=== PATIENT | male | born 1980 | race Caucasian/White ===

== ENCOUNTER 2020-08-20 12:51 | Inpatient (IN) | payer OTHER ==
[2020-08-20 15:03] VITALS: BMI 28.4
[2020-08-20] MEDS ORDERED: IBUPROFEN 400 MG TABLET (FP) PO PRN (16:07)
[2020-08-20] MEDS ORDERED: MAGNESIUM CITRATE 300 ML BOTTLE PO PRN (16:07)
[2020-08-20] MEDS ORDERED: BISMUTH SUBSALICYLATE 524 MG/30 ML UD PO PRN (16:07)
[2020-08-20] MEDS ORDERED: MENTHOL/PHENOL 1 EACH UD MM PRN (16:07)
[2020-08-20] MEDS ORDERED: NALOXONE HCL 0.4 MG/ML VIAL IM PRN (16:07)
[2020-08-20] MEDS ORDERED: MAGNESIUM HYDROX 2400MG/30ML ORAL SUSPENSION 30 ML CUP PO PRN (16:07)
[2020-08-20] MEDS ORDERED: chlordiazePOXIDE HCL 25 MG CAPSULE PO PRN (16:07)
[2020-08-20] MEDS ORDERED: MAG HYDROX/AL HYDROX/SIMETH 30 ML UNIT-DOSE CUP PO PRN (16:07)
[2020-08-20] MEDS ORDERED: ACETAMINOPHEN 325 MG TABLET (FP) PO PRN ×2 (16:07)
[2020-08-20] MEDS ORDERED: NICOTINE POLACRILEX 2 MG GUM BUC PRN (16:07)
[2020-08-20] MEDS ORDERED: cloNIDine HCL 0.1 MG TABLET PO PRN (16:07)
[2020-08-20] MEDS ORDERED: METHOCARBAMOL 500 MG TABLET PO PRN (16:07)
[2020-08-20] MEDS ORDERED: METHADONE HCL 10 MG TABLET (FOR DETOX USE ONLY) PO ONE (16:07)
[2020-08-20] MEDS: chlordiazePOXIDE HCL 25 MG CAPSULE PO SCH ×2 (17:28→22:39)
[2020-08-20] MEDS: THIAMINE HCL 100 MG TABLET (FP) PO SCH (22:39)
[2020-08-20] MEDS: MELATONIN 5 MG TABLETS PO SCH (22:39)
[2020-08-21] MEDS: chlordiazePOXIDE HCL 25 MG CAPSULE PO SCH ×4 (05:09→22:29)
[2020-08-21] MEDS ORDERED: PRENATAL VITAMINS W/ FOLIC ACID TABLET (FP) PO SCH (10:00)
[2020-08-21] MEDS ORDERED: METHADONE (DETOX) 20 MG, METHADONE (DETOX) 5 MG PO ONE (10:00)
[2020-08-21] MEDS ORDERED: NICOTINE 14 MG/24 HOURS TOPICAL PATCH TD SCH (10:00)
[2020-08-21] MEDS ORDERED: METHADONE HCL 10 MG TABLET (FOR DETOX USE ONLY) ONE (11:16)
[2020-08-21] MEDS ORDERED: METHADONE HCL 5 MG TABLET (FOR DETOX USE ONLY) ONE (11:16)
[2020-08-21 11:22] LABS: HEMATOCRIT 43.5 % (35.4-49); HEMOGLOBIN 14.6 GM/dL (11.7-16.9); MCH 30.5 pg (25.7-33.7); MCHC 33.5 g/dl (32.0-35.9); MEAN CELL VOLUME 90.9 fl (80-96); MEAN PLT VOLUME 8.4 fl (7.5-11.1); PLATELET COUNT 254 K/MM3 (134-434); RBC 4.78 M/mm3 (4.00-5.60); RDW 13.3 % (11.9-15.9)
[2020-08-21 11:33] LABS: POTASSIUM 4.4 mmol/L (3.5-5.1)
[2020-08-21 11:37] LABS: ALBUMIN 3.3 g/dl (3.4-5.0); BLOOD UREA NITROGEN 11.3 mg/dL (7-18)
[2020-08-21 11:38] LABS: CALCIUM 8.8 mg/dL (8.5-10.1)
[2020-08-21 11:40] LABS: CREATININE 0.8 mg/dL (0.55-1.3)
[2020-08-21 11:42] LABS: BILIRUBIN,TOTAL 0.3 mg/dL (0.2-1); TOT PROT 6.3 g/dl (6.4-8.2)
[2020-08-21] MEDS: THIAMINE HCL 100 MG TABLET (FP) PO SCH (22:28)
[2020-08-21] MEDS: MELATONIN 5 MG TABLETS PO SCH (22:30)
[2020-08-22] MEDS ORDERED: chlordiazePOXIDE HCL 25 MG CAPSULE PO SCH (05:00)
[2020-08-22 06:38] VITALS: BP 141/86; PULSE 61; TEMP 97.5
[2020-08-22] MEDS ORDERED: METHADONE HCL 10 MG TABLET (FOR DETOX USE ONLY) PO ONE (10:00)
[2020-08-23] MEDS ORDERED: chlordiazePOXIDE HCL 10 MG CAPSULE PO PRN
[2020-08-23] MEDS ORDERED: chlordiazePOXIDE HCL 10 MG CAPSULE PO SCH (05:00)
[2020-08-23] MEDS ORDERED: METHADONE (DETOX) 10 MG, METHADONE (DETOX) 5 MG PO ONE (10:00)
[2020-08-24] MEDS ORDERED: chlordiazePOXIDE HCL 10 MG CAPSULE PO SCH (05:00)
[2020-08-24] MEDS ORDERED: METHADONE HCL 10 MG TABLET (FOR DETOX USE ONLY) PO ONE (10:00)
[2020-08-25] MEDS ORDERED: chlordiazePOXIDE HCL 10 MG CAPSULE PO ONE (05:00)
[2020-08-25] MEDS ORDERED: METHADONE HCL 5 MG TABLET (FOR DETOX USE ONLY) PO ONE (06:00)
== END 2020-08-22 08:45 | disposition left against medical advice (07) | DRG 770 ==
LOC: YASAS 12:51 → Y6N 16:06
PROVIDERS: ADMIT Allergy & Immunology; ATTEND Allergy & Immunology
PROC: HZ2ZZZZ Detoxification Services for Substance Abuse Treatment (ICD-10-PCS; principal; 2020-08-20)
DX: F11.23 Opioid dependence with withdrawal (principal); F10.230 Alcohol dependence with withdrawal, uncomplicated; F14.10 Cocaine abuse, uncomplicated; F17.210 Nicotine dependence, cigarettes, uncomplicated
CPT/HCPCS: 36415; 80053; 85027; 86780; 93005; 93010; C9803; U0003

== ENCOUNTER 2022-04-14 13:51 | Inpatient (IN) | payer OTHER ==
[2022-04-14 14:52] VITALS: BMI 22.0
[2022-04-14] MEDS ORDERED: NALOXONE HCL 0.4 MG/ML VIAL IM PRN (15:16)
[2022-04-14] MEDS ORDERED: METHOCARBAMOL 500 MG TABLET PO PRN (15:16)
[2022-04-14] MEDS ORDERED: cloNIDine HCL 0.1 MG TABLET PO PRN (15:16)
[2022-04-14] MEDS ORDERED: methaDONE HCL 10 MG TABLET (FOR DETOX USE ONLY) PO ONE (15:16)
[2022-04-14] MEDS ORDERED: LOPERAMIDE HCL 2 MG CAPSULE PO PRN (15:16)
[2022-04-14] MEDS ORDERED: BISMUTH SUBSALICYLATE 524 MG/30 ML PO PRN (15:16)
[2022-04-14] MEDS ORDERED: DICYCLOMINE HCL 10 MG CAPSULE PO PRN (15:16)
[2022-04-14] MEDS ORDERED: IBUPROFEN 600 MG TABLET (FP) PO PRN (15:16)
[2022-04-14] MEDS ORDERED: ACETAMINOPHEN 325 MG TABLET (FP) PO PRN ×2 (15:16)
[2022-04-14] MEDS ORDERED: NICOTINE 10 MG CARTRIDGE (INHALER) IH PRN (15:16)
[2022-04-14] MEDS ORDERED: IBUPROFEN 400 MG TABLET (FP) PO PRN (15:16)
[2022-04-14] MEDS ORDERED: LORazepam 1 MG TABLET PO PRN (15:16)
[2022-04-14] MEDS ORDERED: MAGNESIUM HYDROX 2400MG/30ML ORAL SUSPENSION 30 ML CUP PO PRN (15:16)
[2022-04-14] MEDS ORDERED: BENZOCAINE/MENTHOL (CHLORASEPTIC ) LOZENGE MM PRN (15:16)
[2022-04-14] MEDS ORDERED: MAG HYDROX/AL HYDROX/SIMETH 30 ML UNIT-DOSE CUP PO PRN (15:16)
[2022-04-14] MEDS ORDERED: MAGNESIUM CITRATE 300 ML BOTTLE PO PRN (15:16)
[2022-04-14] MEDS: LORazepam 2 MG TABLET PO SCH ×2 (18:07→22:46)
[2022-04-14] MEDS: MELATONIN 5 MG TABLETS PO SCH (22:48)
[2022-04-14] MEDS: THIAMINE HCL 100 MG TABLET (FP) PO SCH (22:48)
[2022-04-14] MEDS: CEPHALEXIN MONOHYDRATE 500 MG CAPSULE (UD) PO SCH (22:48)
[2022-04-15] MEDS: LORazepam 2 MG TABLET PO SCH ×4 (06:36→23:08)
[2022-04-15] MEDS ORDERED: methaDONE HCL 10 MG TABLET (FOR DETOX USE ONLY) ONE (08:59)
[2022-04-15] MEDS ORDERED: PRENATAL VITAMINS W/ FOLIC ACID TABLET (FP) PO SCH (10:00)
[2022-04-15] MEDS ORDERED: NICOTINE 7 MG/24 HOURS TOPICAL PATCH TD SCH (10:00)
[2022-04-15 11:55] LABS: HEMATOCRIT 35.5 % (35.4-49); HEMOGLOBIN 12.2 GM/dL (11.7-16.9); MCH 28.6 pg (25.7-33.7); MCHC 34.3 g/dl (32.0-35.9); MEAN CELL VOLUME 83.4 fl (80-96); PLATELET COUNT 273 10^3/uL (134-434); RBC 4.25 M/mm3 (4.00-5.60); RDW 13.3 % (11.9-15.9); WHITE BLOOD COUNT 6.7 K/mm3 (4.0-10.0)
[2022-04-15 12:25] LABS: CALCIUM 8.7 mg/dL (8.5-10.1)
[2022-04-15 12:27] LABS: ALBUMIN 2.8 g/dl (3.4-5.0); BLOOD UREA NITROGEN 12.8 mg/dL (7-18)
[2022-04-15 12:29] LABS: CREATININE 0.6 mg/dL (0.55-1.3)
[2022-04-15 12:31] LABS: BILIRUBIN,TOTAL 1.2 mg/dL (0.2-1); TOT PROT 6.1 g/dl (6.4-8.2)
[2022-04-15 12:35] LABS: HIV INTERPRETATION NEGATIVE (NEGATIVE)
[2022-04-15] MEDS: CEPHALEXIN MONOHYDRATE 500 MG CAPSULE (UD) PO SCH ×2 (15:34→23:08)
[2022-04-15] MEDS: MELATONIN 5 MG TABLETS PO SCH (23:08)
[2022-04-15] MEDS: THIAMINE HCL 100 MG TABLET (FP) PO SCH (23:08)
[2022-04-16] MEDS ORDERED: LORazepam 1 MG TABLET PO SCH (05:00)
[2022-04-16 07:17] VITALS: BP 150/99; PULSE 90; TEMP 97.8
[2022-04-16] MEDS ORDERED: methaDONE HCL 10 MG TABLET (FOR DETOX USE ONLY) PO ONE (10:00)
[2022-04-17] MEDS ORDERED: LORazepam 0.5 MG TABLET PO PRN
[2022-04-17] MEDS ORDERED: LORazepam 0.5 MG TABLET PO SCH (05:00)
[2022-04-18] MEDS ORDERED: LORazepam 0.5 MG TABLET PO ONE (05:00)
[2022-04-18] MEDS ORDERED: methaDONE HCL 10 MG TABLET (FOR DETOX USE ONLY) PO ONE (10:00)
== END 2022-04-16 08:33 | disposition left against medical advice (07) | DRG 770 ==
LOC: YASAS 13:51 → Y3N 17:11
PROVIDERS: ADMIT Allergy & Immunology; ATTEND Surgery
PROC: HZ2ZZZZ Detoxification Services for Substance Abuse Treatment (ICD-10-PCS; principal; 2022-04-14)
DX: F11.23 Opioid dependence with withdrawal (principal); F10.230 Alcohol dependence with withdrawal, uncomplicated; F14.20 Cocaine dependence, uncomplicated; F17.210 Nicotine dependence, cigarettes, uncomplicated; U07.1 COVID-19; I80.8 Phlebitis and thrombophlebitis of other sites
CPT/HCPCS: 36415; 80053; 82947; 83036; 85027; 86780; 87389; 87811; 93005; 93010; C9803-CS; U0003; U0005

== ENCOUNTER 2022-08-20 16:31 | Inpatient (IN) | payer OTHER ==
[2022-08-20 17:38] VITALS: BMI 20.5
[2022-08-20] MEDS ORDERED: ONDANSETRON *ODT* 4 MG TABLET SL PRN (19:10)
[2022-08-20] MEDS ORDERED: IBUPROFEN 600 MG TABLET (FP) PO PRN (19:10)
[2022-08-20] MEDS ORDERED: POLYETHYLENE GLYCOL (HEALTHYLAX) 3350 17 GM PACKET PO PRN (19:10)
[2022-08-20] MEDS ORDERED: NICOTINE 10 MG CARTRIDGE (INHALER) IH PRN (19:10)
[2022-08-20] MEDS ORDERED: IBUPROFEN 400 MG TABLET (FP) PO PRN (19:10)
[2022-08-20] MEDS ORDERED: NALOXONE HCL (KLOXXADO) 8 MG SPRAY NS PRN (19:10)
[2022-08-20] MEDS ORDERED: LOPERAMIDE HCL 2 MG CAPSULE PO PRN (19:10)
[2022-08-20] MEDS ORDERED: ACETAMINOPHEN 325 MG TABLET (FP) PO PRN ×2 (19:10)
[2022-08-20] MEDS ORDERED: BENZOCAINE/MENTHOL (CHLORASEPTIC ) LOZENGE MM PRN (19:10)
[2022-08-20] MEDS ORDERED: MAG HYDROX/AL HYDROX/SIMETH 30 ML UNIT-DOSE CUP PO PRN (19:10)
[2022-08-20] MEDS ORDERED: BISMUTH SUBSALICYLATE 524 MG/30 ML PO PRN (19:10)
[2022-08-20] MEDS ORDERED: MAGNESIUM HYDROX 2400MG/30ML ORAL SUSPENSION 30 ML CUP PO PRN (19:10)
[2022-08-20] MEDS ORDERED: DICYCLOMINE HCL 10 MG CAPSULE PO PRN (19:10)
[2022-08-20] MEDS: THIAMINE HCL 100 MG TABLET (FP) PO SCH ×2 (22:21→22:24)
[2022-08-20] MEDS: MELATONIN 5 MG TABLETS PO SCH ×2 (22:21→22:24)
[2022-08-21] MEDS: PRENATAL VITAMINS W/ FOLIC ACID TABLET (FP) PO SCH (10:14)
[2022-08-21] MEDS: METHOCARBAMOL 500 MG TABLET PO PRN (10:14)
[2022-08-21] MEDS: hydrOXYzine PAMOATE 25 MG CAPSULE (FP) PO PRN (10:14)
[2022-08-21] MEDS ORDERED: methaDONE HCL 10 MG TABLET (FOR DETOX USE ONLY) PO ONE (10:15)
[2022-08-21 11:16] LABS: HEMATOCRIT 40.4 % (35.4-49); HEMOGLOBIN 13.4 GM/dL (11.7-16.9); MCH 27.8 pg (25.7-33.7); MCHC 33.2 g/dl (32.0-35.9); MEAN CELL VOLUME 83.8 fl (80-96); MEAN PLT VOLUME 7.2 fl (7.5-11.1); PLATELET COUNT 250 10^3/uL (134-434); RBC 4.83 M/mm3 (4.00-5.60); RDW 14.3 % (11.9-15.9); WHITE BLOOD COUNT 10.4 K/mm3 (4.0-10.0)
[2022-08-21 11:38] LABS: ALBUMIN 3.1 g/dl (3.4-5.0); BLOOD UREA NITROGEN 17.2 mg/dL (7-18); CREATININE 0.6 mg/dL (0.55-1.3)
[2022-08-21 11:40] LABS: BILIRUBIN,TOTAL 0.3 mg/dL (0.2-1); TOT PROT 6.5 g/dl (6.4-8.2)
[2022-08-21 11:41] LABS: CALCIUM 8.9 mg/dL (8.5-10.1)
[2022-08-21] MEDS: cloNIDine HCL 0.1 MG TABLET PO PRN ×2 (13:31→17:22)
[2022-08-21] MEDS: diazePAM 5 MG TABLET PO PRN ×2 (13:31→22:27)
[2022-08-21] MEDS: THIAMINE HCL 100 MG TABLET (FP) PO SCH (22:26)
[2022-08-21] MEDS: MELATONIN 5 MG TABLETS PO SCH (22:26)
[2022-08-22] MEDS: PRENATAL VITAMINS W/ FOLIC ACID TABLET (FP) PO SCH (10:22)
[2022-08-22] MEDS: METHOCARBAMOL 500 MG TABLET PO PRN (10:22)
[2022-08-22] MEDS: cloNIDine HCL 0.1 MG TABLET PO PRN (12:59)
[2022-08-22] MEDS: THIAMINE HCL 100 MG TABLET (FP) PO SCH (22:16)
[2022-08-22] MEDS: MELATONIN 5 MG TABLETS PO SCH (22:16)
[2022-08-23] MEDS ORDERED: methaDONE HCL 10 MG TABLET (FOR DETOX USE ONLY) PO ONE (10:00)
[2022-08-23 10:05] VITALS: BP 164/107; PULSE 88; RESP 16; TEMP 97.1
[2022-08-23] MEDS: PRENATAL VITAMINS W/ FOLIC ACID TABLET (FP) PO SCH (10:13)
[2022-08-23] MEDS: hydrOXYzine PAMOATE 25 MG CAPSULE (FP) PO PRN (10:14)
[2022-08-23] MEDS: METHOCARBAMOL 500 MG TABLET PO PRN (10:14)
[2022-08-25] MEDS ORDERED: methaDONE HCL 10 MG TABLET (FOR DETOX USE ONLY) PO ONE (10:00)
== END 2022-08-23 11:50 | disposition left against medical advice (07) | DRG 770 ==
LOC: YASAS 16:31 → UNDOADMIN 19:14 → Y6N 19:14
PROVIDERS: ADMIT Allergy & Immunology; ATTEND Surgery
PROC: HZ2ZZZZ Detoxification Services for Substance Abuse Treatment (ICD-10-PCS; principal; 2022-08-20)
DX: F11.23 Opioid dependence with withdrawal (principal); F10.230 Alcohol dependence with withdrawal, uncomplicated; F14.20 Cocaine dependence, uncomplicated; F17.213 Nicotine dependence, cigarettes, with withdrawal; R63.4 Abnormal weight loss; Z68.20 Body mass index [BMI] 20.0-20.9, adult; Z86.16 Personal history of COVID-19; Z28.310 Unvaccinated for COVID-19; Z28.9 Immunization not carried out for unspecified reason; Z59.00 Homelessness unspecified
CPT/HCPCS: 36415; 80053; 85027; 86780; C9803-CS; U0003; U0005

== ENCOUNTER 2022-11-10 12:41 | Inpatient (IN) | payer OTHER ==
[2022-11-10 13:29] VITALS: BMI 18.3
[2022-11-10] MEDS ORDERED: ONDANSETRON *ODT* 4 MG TABLET SL PRN (14:50)
[2022-11-10] MEDS ORDERED: BISMUTH SUBSALICYLATE 524 MG/30 ML PO PRN (14:50)
[2022-11-10] MEDS ORDERED: MAG HYDROX/AL HYDROX/SIMETH 30 ML UNIT-DOSE CUP PO PRN (14:50)
[2022-11-10] MEDS ORDERED: NICOTINE POLACRILEX 2 MG GUM BUC PRN (14:50)
[2022-11-10] MEDS ORDERED: MAGNESIUM HYDROX 2400MG/30ML ORAL SUSPENSION 30 ML CUP PO PRN (14:50)
[2022-11-10] MEDS ORDERED: IBUPROFEN 600 MG TABLET (FP) PO PRN (14:50)
[2022-11-10] MEDS ORDERED: LOPERAMIDE HCL 2 MG CAPSULE PO PRN (14:50)
[2022-11-10] MEDS ORDERED: POLYETHYLENE GLYCOL (HEALTHYLAX) 3350 17 GM PACKET PO PRN (14:50)
[2022-11-10] MEDS ORDERED: DICYCLOMINE HCL 10 MG CAPSULE PO PRN (14:50)
[2022-11-10] MEDS ORDERED: NALOXONE HCL (KLOXXADO) 8 MG SPRAY NS PRN (14:50)
[2022-11-10] MEDS ORDERED: IBUPROFEN 400 MG TABLET (FP) PO PRN (14:50)
[2022-11-10] MEDS ORDERED: NICOTINE 10 MG CARTRIDGE (INHALER) IH PRN (14:50)
[2022-11-10] MEDS ORDERED: ACETAMINOPHEN 325 MG TABLET (FP) PO PRN ×2 (14:50)
[2022-11-10] MEDS ORDERED: BENZOCAINE/MENTHOL (CHLORASEPTIC ) LOZENGE MM PRN (14:50)
[2022-11-10] MEDS ORDERED: hydrOXYzine PAMOATE 25 MG CAPSULE (FP) PO PRN (14:50)
[2022-11-10] MEDS: THIAMINE HCL 100 MG TABLET (FP) PO SCH (22:28)
[2022-11-10] MEDS: MELATONIN 5 MG TABLETS PO SCH (22:28)
[2022-11-11] MEDS ORDERED: cloNIDine HCL 0.1 MG TABLET PO PRN (09:10)
[2022-11-11] MEDS ORDERED: methaDONE HCL 10 MG TABLET (FOR DETOX USE ONLY) PO ONE (09:30)
[2022-11-11] MEDS ORDERED: PRENATAL VITAMINS W/ FOLIC ACID TABLET (FP) PO SCH (10:00)
[2022-11-11] MEDS: diazePAM 5 MG TABLET PO PRN ×3 (10:13→22:15)
[2022-11-11 14:08] LABS: HEMATOCRIT 39.8 % (35.4-49); MCH 28.1 pg (25.7-33.7); MCHC 32.7 g/dl (32.0-35.9); MEAN PLT VOLUME 7.7 fl (7.5-11.1); PLATELET COUNT 272 10^3/uL (134-434); RBC 4.63 M/mm3 (4.00-5.60); RDW 16.7 % (11.9-15.9); WHITE BLOOD COUNT 8.3 K/mm3 (4.0-10.0)
[2022-11-11 15:25] LABS: ALBUMIN 2.8 g/dl (3.4-5.0); CALCIUM 8.5 mg/dL (8.5-10.1)
[2022-11-11 15:28] LABS: CREATININE 0.7 mg/dL (0.55-1.3)
[2022-11-11 15:29] LABS: BILIRUBIN,TOTAL 0.2 mg/dL (0.2-1); TOT PROT 6.2 g/dl (6.4-8.2)
[2022-11-11] MEDS: THIAMINE HCL 100 MG TABLET (FP) PO SCH (22:15)
[2022-11-11] MEDS: MELATONIN 5 MG TABLETS PO SCH (22:15)
[2022-11-11] MEDS: METHOCARBAMOL 500 MG TABLET PO PRN (22:15)
[2022-11-12] MEDS: METHOCARBAMOL 500 MG TABLET PO PRN (05:45)
[2022-11-12] MEDS: diazePAM 5 MG TABLET PO PRN (05:45)
[2022-11-12 06:11] VITALS: BP 130/88; PULSE 78; RESP 16; TEMP 97.7
[2022-11-13] MEDS ORDERED: methaDONE HCL 10 MG TABLET (FOR DETOX USE ONLY) PO ONE (10:00)
[2022-11-15] MEDS ORDERED: methaDONE HCL 10 MG TABLET (FOR DETOX USE ONLY) PO ONE (10:00)
== END 2022-11-12 08:29 | disposition left against medical advice (07) | DRG 770 ==
LOC: YASAS 12:41 → Y3N 15:12
PROVIDERS: ADMIT Allergy & Immunology; ATTEND Surgery
PROC: HZ2ZZZZ Detoxification Services for Substance Abuse Treatment (ICD-10-PCS; principal; 2022-11-10)
DX: F11.23 Opioid dependence with withdrawal (principal); F10.230 Alcohol dependence with withdrawal, uncomplicated; F14.20 Cocaine dependence, uncomplicated; F17.210 Nicotine dependence, cigarettes, uncomplicated; Z86.19 Personal history of other infectious and parasitic diseases; Z28.310 Unvaccinated for COVID-19; Z28.9 Immunization not carried out for unspecified reason
CPT/HCPCS: 36415; 80053; 85027; 86780; 87811; C9803-CS; U0003; U0005

== ENCOUNTER 2022-12-03 14:11 | Inpatient (IN) | payer OTHER ==
[2022-12-03 15:18] VITALS: BMI 19.5
[2022-12-03] MEDS ORDERED: BISMUTH SUBSALICYLATE 524 MG/30 ML PO PRN (15:49)
[2022-12-03] MEDS ORDERED: methaDONE HCL 10 MG TABLET (FOR DETOX USE ONLY) PO ONE (15:49)
[2022-12-03] MEDS ORDERED: IBUPROFEN 400 MG TABLET (FP) PO PRN (15:49)
[2022-12-03] MEDS ORDERED: MAG HYDROX/AL HYDROX/SIMETH 30 ML UNIT-DOSE CUP PO PRN (15:49)
[2022-12-03] MEDS ORDERED: DICYCLOMINE HCL 10 MG CAPSULE PO PRN (15:49)
[2022-12-03] MEDS ORDERED: NICOTINE 10 MG CARTRIDGE (INHALER) IH PRN (15:49)
[2022-12-03] MEDS ORDERED: NALOXONE HCL (KLOXXADO) 8 MG SPRAY NS PRN (15:49)
[2022-12-03] MEDS ORDERED: IBUPROFEN 600 MG TABLET (FP) PO PRN (15:49)
[2022-12-03] MEDS ORDERED: ACETAMINOPHEN 325 MG TABLET (FP) PO PRN ×2 (15:49)
[2022-12-03] MEDS ORDERED: ONDANSETRON *ODT* 4 MG TABLET SL PRN (15:49)
[2022-12-03] MEDS ORDERED: LOPERAMIDE HCL 2 MG CAPSULE PO PRN (15:49)
[2022-12-03] MEDS ORDERED: BENZOCAINE/MENTHOL (CHLORASEPTIC ) LOZENGE MM PRN (15:49)
[2022-12-03] MEDS ORDERED: POLYETHYLENE GLYCOL (HEALTHYLAX) 3350 17 GM PACKET PO PRN (15:49)
[2022-12-03] MEDS ORDERED: chlordiazePOXIDE HCL 25 MG CAPSULE PO PRN (15:49)
[2022-12-03] MEDS ORDERED: chlordiazePOXIDE HCL 25 MG CAPSULE ONE (17:15)
[2022-12-03] MEDS ORDERED: methaDONE HCL 10 MG TABLET (FOR DETOX USE ONLY) ONE (17:16)
[2022-12-03] MEDS: NICOTINE 7 MG/24 HOURS TOPICAL PATCH TD SCH (17:21)
[2022-12-03] MEDS: PRENATAL VITAMINS W/ FOLIC ACID TABLET (FP) PO SCH (17:21)
[2022-12-03] MEDS: chlordiazePOXIDE HCL 25 MG CAPSULE PO SCH ×2 (17:39→22:55)
[2022-12-03] MEDS: MELATONIN 5 MG TABLETS PO SCH (22:54)
[2022-12-03] MEDS: THIAMINE HCL 100 MG TABLET (FP) PO SCH (22:55)
[2022-12-04] MEDS: chlordiazePOXIDE HCL 25 MG CAPSULE PO SCH ×4 (06:13→22:34)
[2022-12-04] MEDS: PRENATAL VITAMINS W/ FOLIC ACID TABLET (FP) PO SCH (10:40)
[2022-12-04] MEDS: NICOTINE 7 MG/24 HOURS TOPICAL PATCH TD SCH (10:40)
[2022-12-04 15:13] LABS: ALBUMIN 3.1 g/dl (3.4-5.0); BLOOD UREA NITROGEN 9.2 mg/dL (7-18); CALCIUM 8.9 mg/dL (8.5-10.1)
[2022-12-04 15:16] LABS: CREATININE 0.6 mg/dL (0.55-1.3)
[2022-12-04 15:18] LABS: BILIRUBIN,TOTAL 0.4 mg/dL (0.2-1); TOT PROT 6.6 g/dl (6.4-8.2)
[2022-12-04 15:22] LABS: HEMATOCRIT 40.8 % (35.4-49); HEMOGLOBIN 13.3 GM/dL (11.7-16.9); MCH 27.2 pg (25.7-33.7); MCHC 32.7 g/dl (32.0-35.9); MEAN CELL VOLUME 83.1 fl (80-96); MEAN PLT VOLUME 7.9 fl (7.5-11.1); PLATELET COUNT 266 10^3/uL (134-434); RBC 4.91 M/mm3 (4.00-5.60); WHITE BLOOD COUNT 7.1 K/mm3 (4.0-10.0)
[2022-12-04] MEDS: METHOCARBAMOL 500 MG TABLET PO PRN (22:34)
[2022-12-04] MEDS: cloNIDine HCL 0.1 MG TABLET PO PRN (22:34)
[2022-12-04] MEDS: hydrOXYzine PAMOATE 25 MG CAPSULE (FP) PO PRN (22:34)
[2022-12-04] MEDS: MELATONIN 5 MG TABLETS PO SCH (22:34)
[2022-12-04] MEDS: THIAMINE HCL 100 MG TABLET (FP) PO SCH (22:34)
[2022-12-05] MEDS: chlordiazePOXIDE HCL 25 MG CAPSULE PO SCH ×4 (06:00→22:20)
[2022-12-05] MEDS ORDERED: methaDONE HCL 10 MG TABLET (FOR DETOX USE ONLY) PO ONE (10:00)
[2022-12-05] MEDS: PRENATAL VITAMINS W/ FOLIC ACID TABLET (FP) PO SCH (10:18)
[2022-12-05] MEDS: METHOCARBAMOL 500 MG TABLET PO PRN (10:18)
[2022-12-05] MEDS: NICOTINE 7 MG/24 HOURS TOPICAL PATCH TD SCH (10:21)
[2022-12-05] MEDS: hydrOXYzine PAMOATE 25 MG CAPSULE (FP) PO PRN (17:03)
[2022-12-05] MEDS: MAGNESIUM HYDROX 2400MG/30ML ORAL SUSPENSION 30 ML CUP PO PRN (17:04)
[2022-12-05] MEDS: MELATONIN 5 MG TABLETS PO SCH (22:20)
[2022-12-05] MEDS: THIAMINE HCL 100 MG TABLET (FP) PO SCH (22:20)
[2022-12-05] MEDS: cloNIDine HCL 0.1 MG TABLET PO PRN (22:20)
[2022-12-06] MEDS ORDERED: chlordiazePOXIDE HCL 10 MG CAPSULE PO PRN
[2022-12-06] MEDS: chlordiazePOXIDE HCL 10 MG CAPSULE PO SCH ×4 (05:58→22:19)
[2022-12-06] MEDS: NICOTINE 7 MG/24 HOURS TOPICAL PATCH TD SCH (10:10)
[2022-12-06] MEDS: PRENATAL VITAMINS W/ FOLIC ACID TABLET (FP) PO SCH (10:10)
[2022-12-06] MEDS: MAGNESIUM HYDROX 2400MG/30ML ORAL SUSPENSION 30 ML CUP PO PRN (11:08)
[2022-12-06] MEDS: hydrOXYzine PAMOATE 25 MG CAPSULE (FP) PO PRN (12:23)
[2022-12-06] MEDS: METHOCARBAMOL 500 MG TABLET PO PRN (12:23)
[2022-12-06] MEDS: MELATONIN 5 MG TABLETS PO SCH (22:19)
[2022-12-06] MEDS: THIAMINE HCL 100 MG TABLET (FP) PO SCH (22:19)
[2022-12-07] MEDS: chlordiazePOXIDE HCL 10 MG CAPSULE PO SCH ×2 (05:31→17:37)
[2022-12-07] MEDS: METHOCARBAMOL 500 MG TABLET PO PRN ×2 (05:32→13:05)
[2022-12-07] MEDS ORDERED: methaDONE HCL 10 MG TABLET (FOR DETOX USE ONLY) PO ONE (10:00)
[2022-12-07] MEDS: PRENATAL VITAMINS W/ FOLIC ACID TABLET (FP) PO SCH (10:07)
[2022-12-07] MEDS: NICOTINE 7 MG/24 HOURS TOPICAL PATCH TD SCH (10:07)
[2022-12-07] MEDS: MAGNESIUM HYDROX 2400MG/30ML ORAL SUSPENSION 30 ML CUP PO PRN (17:39)
[2022-12-07] MEDS: THIAMINE HCL 100 MG TABLET (FP) PO SCH (22:40)
[2022-12-07] MEDS: MELATONIN 5 MG TABLETS PO SCH (22:40)
[2022-12-08] MEDS ORDERED: chlordiazePOXIDE HCL 10 MG CAPSULE PO ONE (05:00)
[2022-12-08 07:19] VITALS: BP 147/98; PULSE 77; RESP 18; TEMP 97.9
[2022-12-08] MEDS: NICOTINE 7 MG/24 HOURS TOPICAL PATCH TD SCH (10:19)
[2022-12-08] MEDS: PRENATAL VITAMINS W/ FOLIC ACID TABLET (FP) PO SCH (10:20)
== END 2022-12-08 10:05 | disposition home or self-care (01) | DRG 773 ==
LOC: YASAS 14:11 → Y6N 16:04
PROVIDERS: ADMIT Allergy & Immunology; ATTEND Surgery
PROC: HZ2ZZZZ Detoxification Services for Substance Abuse Treatment (ICD-10-PCS; principal; 2022-12-03)
DX: F11.23 Opioid dependence with withdrawal (principal); F10.230 Alcohol dependence with withdrawal, uncomplicated; F14.20 Cocaine dependence, uncomplicated; F17.210 Nicotine dependence, cigarettes, uncomplicated; B18.2 Chronic viral hepatitis C; Z28.310 Unvaccinated for COVID-19; Z28.9 Immunization not carried out for unspecified reason; Z59.02 Unsheltered homelessness
CPT/HCPCS: 36415; 80053; 85027; 86780; C9803-CS; U0003; U0005

== ENCOUNTER 2023-02-03 12:49 | Inpatient (IN) | payer OTHER ==
[2023-02-03 12:59] VITALS: BMI 20.6
[2023-02-03] MEDS ORDERED: guaiFENesin 600 MG TABLET.ER (FP) PO PRN (15:15)
[2023-02-03] MEDS ORDERED: NICOTINE 10 MG CARTRIDGE (INHALER) IH PRN (15:15)
[2023-02-03] MEDS ORDERED: COLLOIDAL OATMEAL 1 BAR EACH TP PRN (15:15)
[2023-02-03] MEDS ORDERED: BENZOCAINE/MENTHOL (CHLORASEPTIC ) LOZENGE MM PRN (15:15)
[2023-02-03] MEDS ORDERED: DICYCLOMINE HCL 10 MG CAPSULE PO PRN (15:15)
[2023-02-03] MEDS ORDERED: BISMUTH SUBSALICYLATE 262 MG/15 ML BTL PO PRN (15:15)
[2023-02-03] MEDS ORDERED: NICOTINE POLACRILEX 2 MG GUM BUC PRN (15:15)
[2023-02-03] MEDS ORDERED: METHOCARBAMOL 500 MG TABLET PO PRN (15:15)
[2023-02-03] MEDS ORDERED: POLYETHYLENE GLYCOL (HEALTHYLAX) 3350 17 GM PACKET PO PRN (15:15)
[2023-02-03] MEDS ORDERED: methaDONE HCL 10 MG TABLET (FOR DETOX USE ONLY) PO ONE (15:15)
[2023-02-03] MEDS ORDERED: LOPERAMIDE HCL 2 MG CAPSULE PO PRN (15:15)
[2023-02-03] MEDS ORDERED: NALOXONE HCL 0.4 MG/ML VIAL IM PRN (15:15)
[2023-02-03] MEDS ORDERED: IBUPROFEN 400 MG TABLET (FP) PO PRN (15:15)
[2023-02-03] MEDS ORDERED: cloNIDine HCL 0.1 MG TABLET PO PRN (15:15)
[2023-02-03] MEDS ORDERED: BENZONATATE 200 MG CAPSULE PO PRN (15:15)
[2023-02-03] MEDS ORDERED: ACETAMINOPHEN 325 MG TABLET (FP) PO PRN (15:15)
[2023-02-03] MEDS ORDERED: NALOXONE HCL (KLOXXADO) 8 MG SPRAY NS PRN (15:15)
[2023-02-03] MEDS ORDERED: AMMONIUM LACTATE 12% LOTION 225 GM BOTTLE TP PRN (15:15)
[2023-02-03] MEDS ORDERED: MAG HYDROX/AL HYDROX/SIMETH 30 ML UNIT-DOSE CUP PO PRN (15:15)
[2023-02-03] MEDS ORDERED: IBUPROFEN 600 MG TABLET (FP) PO PRN (15:15)
[2023-02-03] MEDS ORDERED: ONDANSETRON *ODT* 4 MG TABLET SL PRN (15:15)
[2023-02-03] MEDS ORDERED: MAGNESIUM HYDROX 2400MG/30ML ORAL SUSPENSION 30 ML CUP PO PRN (15:15)
[2023-02-03] MEDS ORDERED: methaDONE HCL 10 MG TABLET (FOR DETOX USE ONLY) ONE (16:06)
[2023-02-03] MEDS: chlordiazePOXIDE HCL 25 MG CAPSULE PO SCH ×2 (16:31→22:40)
[2023-02-03] MEDS ORDERED: chlordiazePOXIDE HCL 25 MG CAPSULE ONE (16:49)
[2023-02-03] MEDS: MELATONIN 5 MG TABLETS PO SCH (22:40)
[2023-02-03] MEDS: THIAMINE HCL 100 MG TABLET (FP) PO SCH (22:40)
[2023-02-04] MEDS: chlordiazePOXIDE HCL 25 MG CAPSULE PO SCH ×4 (05:27→23:24)
[2023-02-04] MEDS ORDERED: PRENATAL VITAMINS W/ FOLIC ACID TABLET (FP) PO SCH (10:00)
[2023-02-04 10:41] LABS: HEMATOCRIT 38.1 % (35.4-49); HEMOGLOBIN 12.6 GM/dL (11.7-16.9); MCH 27.6 pg (25.7-33.7); MCHC 33.2 g/dl (32.0-35.9); MEAN CELL VOLUME 83.2 fl (80-96); MEAN PLT VOLUME 7.3 fl (7.5-11.1); PLATELET COUNT 273 10^3/uL (134-434); RBC 4.58 M/mm3 (4.00-5.60); RDW 14.8 % (11.9-15.9); WHITE BLOOD COUNT 9.1 K/mm3 (4.0-10.0)
[2023-02-04 10:44] LABS: POTASSIUM 4.2 mmol/L (3.5-5.1)
[2023-02-04 10:46] LABS: CALCIUM 8.8 mg/dL (8.5-10.1)
[2023-02-04 10:47] LABS: BLOOD UREA NITROGEN 10.9 mg/dL (7-18)
[2023-02-04 10:51] LABS: CREATININE 0.7 mg/dL (0.55-1.3)
[2023-02-04 10:53] LABS: BILIRUBIN,TOTAL 0.4 mg/dL (0.2-1); TOT PROT 6.4 g/dl (6.4-8.2)
[2023-02-04 12:12] LABS: HIV INTERPRETATION NEGATIVE (NEGATIVE)
[2023-02-04] MEDS: MELATONIN 5 MG TABLETS PO SCH (23:24)
[2023-02-04] MEDS: THIAMINE HCL 100 MG TABLET (FP) PO SCH (23:24)
[2023-02-05] MEDS ORDERED: chlordiazePOXIDE HCL 25 MG CAPSULE PO SCH (05:00)
[2023-02-05 09:06] VITALS: BP 144/96; PULSE 97; RESP 16; TEMP 100.5
[2023-02-05] MEDS ORDERED: methaDONE HCL 10 MG TABLET (FOR DETOX USE ONLY) PO ONE (10:00)
[2023-02-06] MEDS ORDERED: chlordiazePOXIDE HCL 10 MG CAPSULE PO SCH (05:00)
[2023-02-07] MEDS ORDERED: chlordiazePOXIDE HCL 10 MG CAPSULE PO SCH (05:00)
[2023-02-07] MEDS ORDERED: methaDONE HCL 10 MG TABLET (FOR DETOX USE ONLY) PO ONE (10:00)
[2023-02-08] MEDS ORDERED: chlordiazePOXIDE HCL 10 MG CAPSULE PO ONE (05:00)
== END 2023-02-05 10:10 | disposition left against medical advice (07) | DRG 770 ==
LOC: YASAS 12:49 → Y3N 16:43
PROVIDERS: ADMIT Allergy & Immunology; ATTEND Surgery
PROC: HZ2ZZZZ Detoxification Services for Substance Abuse Treatment (ICD-10-PCS; principal; 2023-02-03)
DX: F11.23 Opioid dependence with withdrawal (principal); F10.230 Alcohol dependence with withdrawal, uncomplicated; F13.20 Sedative, hypnotic or anxiolytic dependence, uncomplicated; F14.20 Cocaine dependence, uncomplicated; F12.10 Cannabis abuse, uncomplicated; F17.210 Nicotine dependence, cigarettes, uncomplicated; Z86.19 Personal history of other infectious and parasitic diseases; Z28.310 Unvaccinated for COVID-19; Z28.9 Immunization not carried out for unspecified reason
CPT/HCPCS: 36415; 80053; 85027; 86780; 87389; C9803-CS; U0003; U0005

== ENCOUNTER 2023-07-28 17:20 | Inpatient (IN) | payer OTHER ==
[2023-07-28 19:40] VITALS: BMI 22.3
[2023-07-28] MEDS ORDERED: MAG HYDROX/AL HYDROX/SIMETH 30 ML UNIT-DOSE CUP PO PRN (21:01)
[2023-07-28] MEDS ORDERED: BENZOCAINE/MENTHOL (CHLORASEPTIC ) LOZENGE MM PRN (21:01)
[2023-07-28] MEDS ORDERED: DICYCLOMINE HCL 10 MG CAPSULE PO PRN (21:01)
[2023-07-28] MEDS ORDERED: BENZONATATE 200 MG CAPSULE PO PRN (21:01)
[2023-07-28] MEDS ORDERED: LOPERAMIDE HCL 2 MG CAPSULE PO PRN (21:01)
[2023-07-28] MEDS ORDERED: ONDANSETRON *ODT* 4 MG TABLET SL PRN (21:01)
[2023-07-28] MEDS ORDERED: IBUPROFEN 400 MG TABLET (FP) PO PRN (21:01)
[2023-07-28] MEDS ORDERED: BISMUTH SUBSALICYLATE 524 MG/30 ML PO PRN (21:01)
[2023-07-28] MEDS ORDERED: ACETAMINOPHEN 325 MG TABLET (FP) PO PRN (21:01)
[2023-07-28] MEDS ORDERED: guaiFENesin 600 MG TABLET.ER (FP) PO PRN (21:01)
[2023-07-28] MEDS ORDERED: NALOXONE HCL (KLOXXADO) 8 MG SPRAY NS PRN (21:01)
[2023-07-28] MEDS ORDERED: POLYETHYLENE GLYCOL (HEALTHYLAX) 3350 17 GM PACKET PO PRN (21:01)
[2023-07-28] MEDS ORDERED: IBUPROFEN 600 MG TABLET (FP) PO PRN (21:01)
[2023-07-28] MEDS ORDERED: NALOXONE HCL 0.4 MG/ML VIAL IM PRN (21:01)
[2023-07-28] MEDS ORDERED: P-EPHED 60MG/TRIPROLIDI 2.5MG TABLET PO PRN (21:01)
[2023-07-28] MEDS ORDERED: MAGNESIUM HYDROX 2400MG/30ML ORAL SUSPENSION 30 ML CUP PO PRN (21:01)
[2023-07-28] MEDS ORDERED: METHOCARBAMOL 500 MG TABLET PO PRN (21:01)
[2023-07-28] MEDS: MELATONIN 5 MG TABLETS PO SCH (22:47)
[2023-07-28] MEDS: hydrOXYzine PAMOATE 25 MG CAPSULE (FP) PO PRN (22:47)
[2023-07-28] MEDS: THIAMINE HCL 100 MG TABLET (FP) PO SCH (22:47)
[2023-07-28] MEDS: BACITRACIN 0.9 GM PACKET TP SCH (22:57)
[2023-07-29] MEDS ORDERED: methaDONE HCL 10 MG TABLET (FOR DETOX USE ONLY) PO ONE (09:21)
[2023-07-29] MEDS ORDERED: chlordiazePOXIDE HCL 25 MG CAPSULE PO PRN (09:21)
[2023-07-29] MEDS ORDERED: cloNIDine HCL 0.1 MG TABLET PO PRN (09:21)
[2023-07-29] MEDS: hydrOXYzine PAMOATE 25 MG CAPSULE (FP) PO PRN (10:25)
[2023-07-29] MEDS: PRENATAL VITAMINS W/ FOLIC ACID TABLET (FP) PO SCH (10:25)
[2023-07-29] MEDS: BACITRACIN 0.9 GM PACKET TP SCH ×2 (10:25→23:03)
[2023-07-29] MEDS: chlordiazePOXIDE HCL 25 MG CAPSULE PO SCH ×3 (10:26→23:04)
[2023-07-29 11:53] LABS: HEMATOCRIT 36.1 % (35.4-49); HEMOGLOBIN 12.4 GM/dL (11.7-16.9); MCH 27.5 pg (25.7-33.7); MCHC 34.2 g/dl (32.0-35.9); MEAN CELL VOLUME 80.3 fl (80-96); MEAN PLT VOLUME 7.7 fl (7.5-11.1); PLATELET COUNT 249 10^3/uL (134-434); RDW 15.3 % (11.9-15.9)
[2023-07-29 11:58] LABS: CHLORIDE 104 mmol/L (98-107); POTASSIUM 4.2 mmol/L (3.5-5.1); SODIUM 140 mmol/L (136-145)
[2023-07-29 12:36] LABS: BLOOD UREA NITROGEN 17.8 mg/dL (7-18); CALCIUM 8.6 mg/dL (8.5-10.1)
[2023-07-29 12:37] LABS: ALBUMIN 2.9 g/dl (3.4-5.0); ANION GAP 7 mmol/L (4-13); CO2 29 mmol/L (21-32); GLUCOSE,RANDOM 100 mg/dL (74-106)
[2023-07-29 12:39] LABS: SGPT/ALT 67 U/L (13-61)
[2023-07-29 12:40] LABS: CREATININE 0.8 mg/dL (0.55-1.3); SGOT/AST 56 U/L (15-37)
[2023-07-29 12:41] LABS: BILIRUBIN,TOTAL 0.3 mg/dL (0.2-1); TOT PROT 6.4 g/dl (6.4-8.2)
[2023-07-29 12:42] LABS: ALK PHOS 113 U/L (45-117)
[2023-07-29 12:51] LABS: HIV INTERPRETATION NEGATIVE (NEGATIVE)
[2023-07-29] MEDS: MELATONIN 5 MG TABLETS PO SCH (23:05)
[2023-07-29] MEDS: THIAMINE HCL 100 MG TABLET (FP) PO SCH (23:05)
[2023-07-30] MEDS: chlordiazePOXIDE HCL 25 MG CAPSULE PO SCH ×4 (05:24→22:51)
[2023-07-30] MEDS: PRENATAL VITAMINS W/ FOLIC ACID TABLET (FP) PO SCH (10:21)
[2023-07-30] MEDS: BACITRACIN 0.9 GM PACKET TP SCH ×2 (10:21→22:52)
[2023-07-30] MEDS: MELATONIN 5 MG TABLETS PO SCH (22:51)
[2023-07-30] MEDS: THIAMINE HCL 100 MG TABLET (FP) PO SCH (22:51)
[2023-07-31] MEDS: chlordiazePOXIDE HCL 25 MG CAPSULE PO SCH ×2 (05:18→11:02)
[2023-07-31 06:53] VITALS: BP 127/79; PULSE 79; RESP 16; TEMP 97.6
[2023-07-31] MEDS ORDERED: methaDONE HCL 10 MG TABLET (FOR DETOX USE ONLY) PO ONE (10:00)
[2023-07-31] MEDS: BACITRACIN 0.9 GM PACKET TP SCH (11:02)
[2023-07-31] MEDS: PRENATAL VITAMINS W/ FOLIC ACID TABLET (FP) PO SCH (11:02)
[2023-08-01] MEDS ORDERED: chlordiazePOXIDE HCL 10 MG CAPSULE PO PRN
[2023-08-01] MEDS ORDERED: chlordiazePOXIDE HCL 10 MG CAPSULE PO SCH (05:00)
[2023-08-02] MEDS ORDERED: chlordiazePOXIDE HCL 10 MG CAPSULE PO SCH (05:00)
[2023-08-02] MEDS ORDERED: methaDONE HCL 10 MG TABLET (FOR DETOX USE ONLY) PO ONE (10:00)
[2023-08-03] MEDS ORDERED: chlordiazePOXIDE HCL 10 MG CAPSULE PO ONE (05:00)
== END 2023-07-31 09:10 | disposition left against medical advice (07) | DRG 770 ==
LOC: YASAS 17:20 → Y6N 22:03
PROVIDERS: ADMIT Allergy & Immunology; ATTEND Surgery
PROC: HZ2ZZZZ Detoxification Services for Substance Abuse Treatment (ICD-10-PCS; principal; 2023-07-28)
DX: F11.23 Opioid dependence with withdrawal (principal); F10.230 Alcohol dependence with withdrawal, uncomplicated; F14.20 Cocaine dependence, uncomplicated; F17.210 Nicotine dependence, cigarettes, uncomplicated; Z86.19 Personal history of other infectious and parasitic diseases; Z28.310 Unvaccinated for COVID-19; Z28.9 Immunization not carried out for unspecified reason
CPT/HCPCS: 36415; 80053; 80307; 85027; 86780; 87389; 87635; 87811

== ENCOUNTER 2023-09-07 15:08 | Inpatient (IN) | payer OTHER ==
[2023-09-07 17:39] VITALS: BMI 20.5
[2023-09-07] MEDS ORDERED: ONDANSETRON *ODT* 4 MG TABLET SL PRN (19:22)
[2023-09-07] MEDS ORDERED: IBUPROFEN 400 MG TABLET (FP) PO PRN (19:22)
[2023-09-07] MEDS ORDERED: MAG HYDROX/AL HYDROX/SIMETH 30 ML UNIT-DOSE CUP PO PRN (19:22)
[2023-09-07] MEDS ORDERED: guaiFENesin 600 MG TABLET.ER (FP) PO PRN (19:22)
[2023-09-07] MEDS ORDERED: POLYETHYLENE GLYCOL (HEALTHYLAX) 3350 17 GM PACKET PO PRN (19:22)
[2023-09-07] MEDS ORDERED: NALOXONE HCL (KLOXXADO) 8 MG SPRAY NS PRN (19:22)
[2023-09-07] MEDS ORDERED: BENZONATATE 200 MG CAPSULE PO PRN (19:22)
[2023-09-07] MEDS ORDERED: LOPERAMIDE HCL 2 MG CAPSULE PO PRN (19:22)
[2023-09-07] MEDS ORDERED: NALOXONE HCL 0.4 MG/ML VIAL IM PRN (19:22)
[2023-09-07] MEDS ORDERED: BENZOCAINE/MENTHOL (CHLORASEPTIC ) LOZENGE MM PRN (19:22)
[2023-09-07] MEDS ORDERED: BISMUTH SUBSALICYLATE 524 MG/30 ML PO PRN (19:22)
[2023-09-07] MEDS ORDERED: MAGNESIUM HYDROX 2400MG/30ML ORAL SUSPENSION 30 ML CUP PO PRN (19:22)
[2023-09-07] MEDS ORDERED: IBUPROFEN 600 MG TABLET (FP) PO PRN (19:22)
[2023-09-07] MEDS ORDERED: DICYCLOMINE HCL 10 MG CAPSULE PO PRN (19:22)
[2023-09-07] MEDS ORDERED: ACETAMINOPHEN 325 MG TABLET (FP) PO PRN (19:22)
[2023-09-07] MEDS ORDERED: methaDONE HCL 10 MG TABLET (FOR DETOX USE ONLY) ONE (19:58)
[2023-09-07] MEDS ORDERED: methaDONE HCL 10 MG TABLET (FOR DETOX USE ONLY) PO ONE (20:00)
[2023-09-07] MEDS: cloNIDine HCL 0.1 MG TABLET PO PRN (20:25)
[2023-09-07] MEDS: diazePAM 5 MG TABLET PO PRN (20:25)
[2023-09-07] MEDS: THIAMINE HCL 100 MG TABLET (FP) PO SCH (21:00)
[2023-09-07] MEDS: MELATONIN 5 MG TABLETS PO SCH (22:43)
[2023-09-07] MEDS: diazePAM 5 MG TABLET PO SCH (23:00)
[2023-09-08] MEDS: hydrOXYzine PAMOATE 25 MG CAPSULE (FP) PO PRN ×2 (00:54→10:23)
[2023-09-08] MEDS: METHOCARBAMOL 500 MG TABLET PO PRN ×3 (00:54→17:43)
[2023-09-08] MEDS: diazePAM 5 MG TABLET PO SCH ×4 (05:22→22:27)
[2023-09-08] MEDS: PRENATAL VITAMINS W/ FOLIC ACID TABLET (FP) PO SCH (10:18)
[2023-09-08 11:36] LABS: CHLORIDE 107 mmol/L (98-107); POTASSIUM 3.5 mmol/L (3.5-5.1); SODIUM 141 mmol/L (136-145)
[2023-09-08 11:40] LABS: ALBUMIN 3.4 g/dl (3.4-5.0); ANION GAP 7 mmol/L (4-13); BLOOD UREA NITROGEN 13.9 mg/dL (7-18); CO2 28 mmol/L (21-32); GLUCOSE,RANDOM 77 mg/dL (74-106)
[2023-09-08 11:41] LABS: HEMATOCRIT 39.3 % (35.4-49); HEMOGLOBIN 12.7 GM/dL (11.7-16.9); MCH 26.5 pg (25.7-33.7); MCHC 32.2 g/dl (32.0-35.9); MEAN CELL VOLUME 82.4 fl (80-96); PLATELET COUNT 202 10^3/uL (134-434); RBC 4.77 M/mm3 (4.00-5.60); RDW 15.5 % (11.9-15.9); WHITE BLOOD COUNT 6.7 K/mm3 (4.0-10.0)
[2023-09-08 11:43] LABS: CREATININE 0.6 mg/dL (0.55-1.3); SGOT/AST 37 U/L (15-37); SGPT/ALT 48 U/L (13-61)
[2023-09-08 11:44] LABS: BILIRUBIN,TOTAL 0.5 mg/dL (0.2-1); TOT PROT 6.9 g/dl (6.4-8.2)
[2023-09-08 11:46] LABS: ALK PHOS 98 U/L (45-117)
[2023-09-08] MEDS ORDERED: PNEUMOC 20-VAL CONJ-DIP CRM/PF 0.5 ML SYRINGE IM ONE (12:00)
[2023-09-08] MEDS: diazePAM 5 MG TABLET PO PRN (14:23)
[2023-09-08] MEDS: cloNIDine HCL 0.1 MG TABLET PO PRN (17:43)
[2023-09-08] MEDS: MELATONIN 5 MG TABLETS PO SCH (22:26)
[2023-09-08] MEDS: THIAMINE HCL 100 MG TABLET (FP) PO SCH (22:27)
[2023-09-09] MEDS: diazePAM 5 MG TABLET PO SCH ×3 (05:43→22:38)
[2023-09-09] MEDS ORDERED: methaDONE HCL 10 MG TABLET (FOR DETOX USE ONLY) PO ONE (10:00)
[2023-09-09] MEDS: hydrOXYzine PAMOATE 25 MG CAPSULE (FP) PO PRN (10:25)
[2023-09-09] MEDS: METHOCARBAMOL 500 MG TABLET PO PRN (10:25)
[2023-09-09] MEDS: PRENATAL VITAMINS W/ FOLIC ACID TABLET (FP) PO SCH (10:25)
[2023-09-09] MEDS: cloNIDine HCL 0.1 MG TABLET PO PRN (10:25)
[2023-09-09] MEDS: diazePAM 5 MG TABLET PO PRN (11:44)
[2023-09-09] MEDS: MELATONIN 5 MG TABLETS PO SCH (22:37)
[2023-09-09] MEDS: THIAMINE HCL 100 MG TABLET (FP) PO SCH (22:38)
[2023-09-10] MEDS: METHOCARBAMOL 500 MG TABLET PO PRN (05:29)
[2023-09-10] MEDS ORDERED: diazePAM 5 MG TABLET PO SCH (06:00)
[2023-09-10 09:31] VITALS: BP 143/91; PULSE 81; RESP 18; TEMP 97.1
[2023-09-10] MEDS ORDERED: BISACODYL 5 MG TABLET.DR (FP) PO ONE (10:00)
[2023-09-10] MEDS: hydrOXYzine PAMOATE 25 MG CAPSULE (FP) PO PRN (10:24)
[2023-09-10] MEDS: PRENATAL VITAMINS W/ FOLIC ACID TABLET (FP) PO SCH (10:24)
[2023-09-10] MEDS ORDERED: DOCUSATE SODIUM 100 MG CAPSULE (FP) PO SCH (14:00)
[2023-09-10] MEDS ORDERED: SENNOSIDES 8.6MG TABLET (FP) PO SCH (22:00)
[2023-09-11] MEDS ORDERED: diazePAM 5 MG TABLET PO ONE (06:00)
[2023-09-11] MEDS ORDERED: methaDONE HCL 10 MG TABLET (FOR DETOX USE ONLY) PO ONE (10:00)
== END 2023-09-10 11:10 | disposition left against medical advice (07) | DRG 770 ==
LOC: YASAS 15:08 → SUATTDRO 15:08 → Y6N 19:19
PROVIDERS: ADMIT Allergy & Immunology; ATTEND Surgery
PROC: HZ2ZZZZ Detoxification Services for Substance Abuse Treatment (ICD-10-PCS; principal; 2023-09-07)
DX: F11.23 Opioid dependence with withdrawal (principal); F10.230 Alcohol dependence with withdrawal, uncomplicated; F14.20 Cocaine dependence, uncomplicated; F17.210 Nicotine dependence, cigarettes, uncomplicated; K59.01 Slow transit constipation; B18.2 Chronic viral hepatitis C; Z28.310 Unvaccinated for COVID-19; Z28.9 Immunization not carried out for unspecified reason
CPT/HCPCS: 36415; 80053; 80307; 85027; 86780; 86803; 87522; 87635; 90677; 93005; 93010

== ENCOUNTER 2024-06-19 11:56 | Inpatient (IN) | payer OTHER ==
[2024-06-19 12:35] VITALS: BMI 23.1
[2024-06-19] MEDS ORDERED: guaiFENesin 600 MG TABLET.ER (FP) PO PRN (13:23)
[2024-06-19] MEDS ORDERED: NALOXONE HCL 0.4 MG/ML VIAL IM PRN (13:23)
[2024-06-19] MEDS ORDERED: MAG HYDROX/AL HYDROX/SIMETH 30 ML UNIT-DOSE CUP PO PRN (13:23)
[2024-06-19] MEDS ORDERED: BENZOCAINE/MENTHOL (CHLORASEPTIC ) LOZENGE MM PRN (13:23)
[2024-06-19] MEDS ORDERED: BISMUTH SUBSALICYLATE 524 MG/30 ML PO PRN (13:23)
[2024-06-19] MEDS ORDERED: ONDANSETRON *ODT* 4 MG TABLET SL PRN (13:23)
[2024-06-19] MEDS ORDERED: NALOXONE (NARCAN) HCL 4 MG/0.1 ML SPRAY NS PRN (13:23)
[2024-06-19] MEDS ORDERED: BENZONATATE 200 MG CAPSULE PO PRN (13:23)
[2024-06-19] MEDS ORDERED: NICOTINE POLACRILEX 4 MG GUM BUC PRN (13:23)
[2024-06-19] MEDS ORDERED: DICYCLOMINE HCL 10 MG CAPSULE PO PRN (13:23)
[2024-06-19] MEDS ORDERED: LOPERAMIDE HCL 2 MG CAPSULE PO PRN (13:23)
[2024-06-19] MEDS ORDERED: chlordiazePOXIDE HCL 25 MG CAPSULE PO PRN (13:23)
[2024-06-19] MEDS ORDERED: methaDONE HCL 10 MG TABLET (FOR DETOX USE ONLY) ONE (13:55)
[2024-06-19] MEDS: methaDONE HCL 10 MG TABLET PO ONE (14:01)
[2024-06-19] MEDS: chlordiazePOXIDE HCL 25 MG CAPSULE PO SCH (16:55)
[2024-06-19] MEDS: IBUPROFEN 600 MG TABLET (FP) PO PRN (16:57)
[2024-06-19] MEDS: METHOCARBAMOL 500 MG TABLET PO PRN (16:58)
[2024-06-19] MEDS: DOCUSATE SODIUM 100 MG CAPSULE (FP) PO SCH (21:42)
[2024-06-19] MEDS: MELATONIN 5 MG TABLETS PO SCH (21:43)
[2024-06-19] MEDS: THIAMINE 100 MG TABLET PO SCH (21:43)
[2024-06-20] MEDS: methaDONE 40 MG, methaDONE 10 MG PO ONE (05:41)
[2024-06-20] MEDS ORDERED: methaDONE HCL 40 MG DISPERSABLE TABLET PO SCH (10:00)
[2024-06-20] MEDS: methaDONE HCL 10 MG TABLET PO ONE (10:07)
[2024-06-20] MEDS: PRENATAL VITAMINS W/ FOLIC ACID TABLET (FP) PO SCH (10:07)
[2024-06-21] MEDS: chlordiazePOXIDE HCL 25 MG CAPSULE PO SCH (05:11)
[2024-06-21] MEDS: methaDONE HCL 40 MG DISPERSABLE TABLET PO ONE (09:57)
[2024-06-21] MEDS: methaDONE HCL 10 MG TABLET PO ONE (09:57)
[2024-06-21] MEDS: POLYETHYLENE GLYCOL (HEALTHYLAX) 3350 17 GM PACKET PO PRN (11:05)
[2024-06-22] MEDS ORDERED: chlordiazePOXIDE HCL 10 MG CAPSULE PO PRN
[2024-06-22] MEDS: chlordiazePOXIDE HCL 10 MG CAPSULE PO SCH (05:21)
[2024-06-22] MEDS: methaDONE 80 MG, methaDONE 10 MG PO ONE (09:32)
[2024-06-22] MEDS ORDERED: methaDONE HCL 40 MG DISPERSABLE TABLET PO ONE (10:00)
[2024-06-22] MEDS ORDERED: methaDONE HCL 10 MG TABLET PO ONE (10:00)
[2024-06-22] MEDS: MAGNESIUM HYDROX 2400MG/30ML ORAL SUSPENSION 30 ML CUP PO PRN (10:08)
[2024-06-22] MEDS: IBUPROFEN 400 MG TABLET (FP) PO PRN (19:25)
[2024-06-23] MEDS: ACETAMINOPHEN 325 MG TABLET (FP) PO PRN (05:49)
[2024-06-23] MEDS: chlordiazePOXIDE HCL 10 MG CAPSULE PO SCH (05:50)
[2024-06-23] MEDS: methaDONE 80 MG, methaDONE 20 MG PO ONE (09:48)
[2024-06-23] MEDS ORDERED: methaDONE HCL 10 MG TABLET PO ONE (10:00)
[2024-06-23] MEDS ORDERED: methaDONE 40 MG, methaDONE 10 MG PO ONE (10:00)
[2024-06-23 17:24] LABS: HEMATOCRIT 36.7 % (35.4-49); HEMOGLOBIN 12.1 GM/dL (11.7-16.9); MCH 27.2 pg (25.7-33.7); MCHC 32.8 g/dl (32.0-35.9); MEAN CELL VOLUME 82.9 fl (80-96); MEAN PLT VOLUME 8.2 fl (7.5-11.1); PLATELET COUNT 185 10^3/uL (134-434); RBC 4.43 M/mm3 (4.00-5.60); RDW 16.3 % (11.9-15.9); WHITE BLOOD COUNT 6.9 K/mm3 (4.0-10.0)
[2024-06-23 17:25] LABS: CHLORIDE 105 mmol/L (98-107); POTASSIUM 4.2 mmol/L (3.5-5.1); SODIUM 139 mmol/L (136-145)
[2024-06-23 17:28] LABS: CALCIUM 9.3 mg/dL (8.5-10.1)
[2024-06-23 17:29] LABS: ALBUMIN 3.5 g/dl (3.4-5.0); ANION GAP 6 mmol/L (4-13); BLOOD UREA NITROGEN 10.6 mg/dL (7-18); CO2 28 mmol/L (21-32); GLUCOSE,RANDOM 145 mg/dL (74-106)
[2024-06-23 17:32] LABS: CREATININE 0.7 mg/dL (0.55-1.3); SGOT/AST 60 U/L (15-37); SGPT/ALT 75 U/L (13-61)
[2024-06-23 17:34] LABS: BILIRUBIN,TOTAL 0.2 mg/dL (0.2-1); TOT PROT 7.2 g/dl (6.4-8.2)
[2024-06-23 17:35] LABS: ALK PHOS 99 U/L (45-117)
[2024-06-24] MEDS: chlordiazePOXIDE HCL 10 MG CAPSULE PO ONE (05:30)
[2024-06-24 08:52] VITALS: RESP 18
[2024-06-24] MEDS: methaDONE 80 MG, methaDONE 20 MG PO ONE (09:14)
[2024-06-24] MEDS ORDERED: methaDONE 40 MG, methaDONE 20 MG PO ONE (10:00)
[2024-06-24] MEDS ORDERED: methaDONE HCL 10 MG TABLET PO ONE (10:00)
[2024-06-24 12:44] VITALS: BP 131/87; PULSE 89; TEMP 97.8
== END 2024-06-24 13:35 | disposition other institution (70) | DRG 773 ==
LOC: YASAS 11:56 → Y6N 13:38
PROVIDERS: ADMIT Allergy & Immunology; ATTEND Surgery
PROC: HZ2ZZZZ Detoxification Services for Substance Abuse Treatment (ICD-10-PCS; principal; 2024-06-19)
DX: F10.230 Alcohol dependence with withdrawal, uncomplicated (principal); F11.20 Opioid dependence, uncomplicated; F14.20 Cocaine dependence, uncomplicated; F17.210 Nicotine dependence, cigarettes, uncomplicated; F19.280 Other psychoactive substance dependence with psychoactive substance-induced anxiety disorder; F19.282 Other psychoactive substance dependence with psychoactive substance-induced sleep disorder; Z86.19 Personal history of other infectious and parasitic diseases; Z56.0 Unemployment, unspecified; Z59.00 Homelessness unspecified
CPT/HCPCS: 36415; 80053; 80305; 80307; 85027; 86780; 87811; 93005; 93010

== ENCOUNTER 2024-06-24 13:50 | Inpatient (IN) | payer OTHER ==
[2024-06-24] MEDS ORDERED: NALOXONE (NARCAN) HCL 4 MG/0.1 ML SPRAY NS PRN (16:18)
[2024-06-24] MEDS ORDERED: ACETAMINOPHEN 325 MG TABLET (FP) PO PRN (16:18)
[2024-06-24] MEDS ORDERED: METHOCARBAMOL 500 MG TABLET PO PRN (16:18)
[2024-06-24] MEDS ORDERED: IBUPROFEN 400 MG TABLET (FP) PO PRN (16:18)
[2024-06-24] MEDS ORDERED: NICOTINE POLACRILEX 4 MG GUM BUC PRN (16:18)
[2024-06-24] MEDS ORDERED: NALOXONE HCL 0.4 MG/ML VIAL IVPUSH PRN (16:18)
[2024-06-24] MEDS ORDERED: NICOTINE POLACRILEX 4 MG LOZENGE BC PRN (16:18)
[2024-06-24] MEDS ORDERED: guaiFENesin 600 MG TABLET.ER (FP) PO PRN (16:18)
[2024-06-24] MEDS ORDERED: LOPERAMIDE HCL 2 MG CAPSULE PO PRN (16:18)
[2024-06-24] MEDS ORDERED: BENZONATATE 200 MG CAPSULE PO PRN (16:18)
[2024-06-24] MEDS ORDERED: MAG HYDROX/AL HYDROX/SIMETH 30 ML UNIT-DOSE CUP PO PRN (16:18)
[2024-06-24] MEDS ORDERED: MAGNESIUM HYDROX 2400MG/30ML ORAL SUSPENSION 30 ML CUP PO PRN (16:18)
[2024-06-24] MEDS ORDERED: BENZOCAINE/MENTHOL (CHLORASEPTIC ) LOZENGE MM PRN (16:18)
[2024-06-24] MEDS: THIAMINE 100 MG TABLET PO SCH (21:38)
[2024-06-24] MEDS: hydrOXYzine PAMOATE 25 MG CAPSULE (FP) PO PRN (21:38)
[2024-06-24] MEDS: MELATONIN 5 MG TABLETS PO SCH (21:38)
[2024-06-25] MEDS: IBUPROFEN 600 MG TABLET (FP) PO PRN (00:46)
[2024-06-25] MEDS: methaDONE 80 MG, methaDONE 20 MG PO SCH (06:00)
[2024-06-25] MEDS ORDERED: methaDONE HCL 10 MG TABLET PO SCH (06:00)
[2024-06-25] MEDS: POLYETHYLENE GLYCOL (HEALTHYLAX) 3350 17 GM PACKET PO PRN (06:49)
[2024-06-25] MEDS: NICOTINE 7 MG/24 HOURS TOPICAL PATCH TD SCH (10:14)
[2024-06-25] MEDS: PRENATAL VITAMINS W/ FOLIC ACID TABLET (FP) PO SCH (10:14)
[2024-06-25 13:26] LABS: INR 0.9 (0.83-1.09); PROTHROMBIN TIME (PATIENT) 10.4 SEC (9.7-13.0)
[2024-06-25] MEDS: ACAMPROSATE CALCIUM 333 MG TABLET.DR PO SCH (14:29)
[2024-06-25 14:45] LABS: HIV INTERPRETATION NEGATIVE (NEGATIVE)
[2024-06-25] MEDS: SUVOREXANT 10 MG TABLET PO PRN (21:31)
[2024-06-26] MEDS ORDERED: methaDONE HCL 40 MG DISPERSABLE TABLET PO SCH (06:00)
[2024-06-26] MEDS: methaDONE 80 MG, methaDONE 10 MG PO SCH (06:36)
[2024-06-29] MEDS: methaDONE HCL 40 MG DISPERSABLE TABLET PO SCH (06:01)
[2024-06-29] MEDS: SUVOREXANT 10 MG TABLET PO PRN (21:35)
[2024-07-02] MEDS ORDERED: methaDONE HCL 10 MG TABLET PO SCH (06:00)
[2024-07-02] MEDS: methaDONE 40 MG, methaDONE 30 MG PO SCH (06:03)
[2024-07-03] MEDS: SUVOREXANT 15 MG TABLET PO PRN (22:03)
[2024-07-09] MEDS ORDERED: NALOXONE (NYS OPIOID OVERDOSE PROGRAM) 4 MG/0.1 ML SPRAY NS PRN (14:55)
[2024-07-14 07:18] VITALS: BP 132/83; PULSE 74; RESP 18; TEMP 97.6
== END 2024-07-14 07:50 | disposition home or self-care (01) | DRG 772 ==
LOC: YASAS 13:50 → Y5N 13:52
PROVIDERS: ADMIT Psychiatry & Neurology Pain Medicine; ATTEND Psychiatry & Neurology Pain Medicine
PROC: HZ42ZZZ Group Counseling for Substance Abuse Treatment, Cognitive-Behavioral (ICD-10-PCS; principal; 2024-06-24)
DX: F11.20 Opioid dependence, uncomplicated (principal); F14.20 Cocaine dependence, uncomplicated; F10.20 Alcohol dependence, uncomplicated; F17.210 Nicotine dependence, cigarettes, uncomplicated; F19.280 Other psychoactive substance dependence with psychoactive substance-induced anxiety disorder; F19.282 Other psychoactive substance dependence with psychoactive substance-induced sleep disorder; F41.9 Anxiety disorder, unspecified; B18.2 Chronic viral hepatitis C; Z59.02 Unsheltered homelessness
CPT/HCPCS: 36415; 82140; 82652; 83735; 85610; 87389

== ENCOUNTER 2025-02-24 09:40 | Inpatient (IN) | payer OTHER ==
[2025-02-24 10:43] VITALS: BMI 26.4
[2025-02-24] MEDS ORDERED: BENZOCAINE/MENTHOL (CHLORASEPTIC ) LOZENGE MM PRN (11:38)
[2025-02-24] MEDS ORDERED: DICYCLOMINE HCL 10 MG CAPSULE PO PRN (11:38)
[2025-02-24] MEDS ORDERED: NALOXONE (NARCAN) HCL 4 MG/0.1 ML SPRAY NS PRN (11:38)
[2025-02-24] MEDS ORDERED: BENZONATATE 200 MG CAPSULE PO PRN (11:38)
[2025-02-24] MEDS ORDERED: MAGNESIUM HYDROX 2400MG/30ML ORAL SUSPENSION 30 ML CUP PO PRN (11:38)
[2025-02-24] MEDS ORDERED: BISMUTH SUBSALICYLATE 262 MG/15 ML BTL PO PRN (11:38)
[2025-02-24] MEDS ORDERED: ACETAMINOPHEN 325 MG TABLET (FP) PO PRN (11:38)
[2025-02-24] MEDS ORDERED: MAG HYDROX/AL HYDROX/SIMETH 30 ML UNIT-DOSE CUP PO PRN (11:38)
[2025-02-24] MEDS ORDERED: ONDANSETRON *ODT* 4 MG TABLET SL PRN (11:38)
[2025-02-24] MEDS ORDERED: POLYETHYLENE GLYCOL (HEALTHYLAX) 3350 17 GM PACKET PO PRN (11:38)
[2025-02-24] MEDS ORDERED: guaiFENesin 600 MG TABLET.ER (FP) PO PRN (11:38)
[2025-02-24] MEDS ORDERED: IBUPROFEN 400 MG TABLET (FP) PO PRN (11:38)
[2025-02-24] MEDS: hydrOXYzine PAMOATE 25 MG CAPSULE (FP) PO PRN (13:04)
[2025-02-24] MEDS: METHOCARBAMOL 500 MG TABLET PO PRN (13:04)
[2025-02-24] MEDS: PRENATAL VITAMINS W/ FOLIC ACID TABLET (FP) PO SCH (13:04)
[2025-02-24] MEDS: IBUPROFEN 600 MG TABLET (FP) PO PRN (17:17)
[2025-02-24] MEDS: chlordiazePOXIDE HCL 25 MG CAPSULE PO PRN (17:18)
[2025-02-24] MEDS ORDERED: MELATONIN 5 MG TABLETS PO SCH (22:00)
[2025-02-24] MEDS: THIAMINE 100 MG TABLET PO SCH (22:19)
[2025-02-24] MEDS: SUVOREXANT 10 MG TABLET PO PRN (22:20)
[2025-02-24] MEDS: chlordiazePOXIDE HCL 25 MG CAPSULE PO SCH (22:21)
[2025-02-25] MEDS ORDERED: methaDONE HCL 10 MG TABLET PO SCH (09:15)
[2025-02-25] MEDS: methaDONE 40 MG, methaDONE 20 MG PO SCH (09:54)
[2025-02-25 12:00] LABS: HEMATOCRIT 36.6 % (40.1-51.0); HEMOGLOBIN 11.5 g/dL (13.7-17.5); MCHC 31.4 g/dl (32.3-36.5); MEAN CELL VOLUME 85.5 fl (79.0-92.2); MEAN PLT VOLUME 10.2 fl (9.4-12.4); PLATELET COUNT 369 x10^3/uL (163-337); RDW 15.3 % (12.1-15.9)
[2025-02-25 12:57] LABS: POTASSIUM 4.4 mmol/L (3.5-5.1)
[2025-02-25 12:59] LABS: ALBUMIN 2.6 g/dl (3.4-5.0); BLOOD UREA NITROGEN 22.8 mg/dL (7-18)
[2025-02-25 13:02] LABS: CREATININE 1.1 mg/dL (0.55-1.3)
[2025-02-25 13:04] LABS: BILIRUBIN,TOTAL 0.3 mg/dL (0.2-1); TOT PROT 7.1 g/dl (6.4-8.2)
[2025-02-25] MEDS: cloNIDine HCL 0.1 MG TABLET PO SCH (14:54)
[2025-02-25] MEDS: CLINDAMYCIN HCL 150 MG CAPSULE (FP) PO SCH (17:44)
[2025-02-26] MEDS: chlordiazePOXIDE HCL 25 MG CAPSULE PO SCH (05:59)
[2025-02-26] MEDS: LOPERAMIDE HCL 2 MG CAPSULE PO PRN (09:55)
[2025-02-26] MEDS: methaDONE HCL 10 MG TABLET PO ONE (09:56)
[2025-02-27] MEDS ORDERED: chlordiazePOXIDE HCL 10 MG CAPSULE PO PRN
[2025-02-27] MEDS: chlordiazePOXIDE HCL 10 MG CAPSULE PO SCH (06:00)
[2025-02-27] MEDS: cloNIDine HCL 0.1 MG TABLET PO PRN (22:24)
[2025-02-28] MEDS: chlordiazePOXIDE HCL 10 MG CAPSULE PO SCH (05:43)
[2025-02-28] MEDS: methaDONE HCL 10 MG TABLET PO ONE (09:21)
[2025-03-01] MEDS: chlordiazePOXIDE HCL 10 MG CAPSULE PO ONE (05:38)
[2025-03-01 06:43] VITALS: BP 134/80; PULSE 70; RESP 17; TEMP 97.3
[2025-03-02] MEDS ORDERED: methaDONE HCL 10 MG TABLET PO ONE (10:00)
== END 2025-03-01 08:38 | disposition home or self-care (01) | DRG 773 ==
LOC: YASAS 09:40 → Y6N 12:30
PROVIDERS: ADMIT Allergy & Immunology; ATTEND Allergy & Immunology
PROC: HZ2ZZZZ Detoxification Services for Substance Abuse Treatment (ICD-10-PCS; principal; 2025-02-24)
DX: F11.23 Opioid dependence with withdrawal (principal); F10.230 Alcohol dependence with withdrawal, uncomplicated; F14.10 Cocaine abuse, uncomplicated; F12.10 Cannabis abuse, uncomplicated; F17.210 Nicotine dependence, cigarettes, uncomplicated; F19.282 Other psychoactive substance dependence with psychoactive substance-induced sleep disorder; F19.24 Other psychoactive substance dependence with psychoactive substance-induced mood disorder; L02.11 Cutaneous abscess of neck; Z86.19 Personal history of other infectious and parasitic diseases; Z59.02 Unsheltered homelessness
CPT/HCPCS: 36415; 80053; 80305; 80307; 85027; 86780; 93005; 93010